=== PATIENT | female | born 1945 | race Caucasian/White ===

== ENCOUNTER 2017-03-19 19:56 | Emergency (ER) | payer MEDICARE ==
[~2017-03-19] VITALS: Ht 175.3 cm; Wt 72.5 kg
[~2017-03-19 19:56] MED LIST: ASPI81 PO; ATOR10TA84 PO; GABA-531 PO; LOSA50TA37 PO; QUET100T PO
[2017-03-19 20:12] LABS: GLUCOSE,POINT OF CARE 101 MG/DL (70-110)
[2017-03-19 21:27] LABS: BASOPHILS % (AUTO) 0.3 % (0.0-2.0); EOSINOPHILS % (AUTO) 3.2 % (1.0-6.0); HEMATOCRIT 35.4 % (36-46); LYMPHOCYTES # (AUTO) 1.4 K/uL (1.0-4.8); LYMPHOCYTES % (AUTO) 20.5 % (22.0-44.0); MEAN CORPUSCULAR HEMOGLOBIN 31.2 pg (26.0-34.0); MEAN CORPUSCULAR VOLUME 92 fL (80-100); MONOCYTES # (AUTO) 0.9 K/uL (0.1-1.0); MONOCYTES % (AUTO) 14.1 % (2.0-9.0); NEUTROPHILS # (AUTO) 4.2 K/uL (1.8-7.7); NEUTROPHILS % (AUTO) 61.9 % (40.0-70.0); PLATELET COUNT (AUTO) 221 K/uL (150-450); RED BLOOD CELL COUNT(AUTO) 3.86 MIL/uL (4.00-5.20); RED CELL DISTRIBUTION WIDTH 15.1 % (11.5-14.5); WHITE BLOOD COUNT (AUTO) 6.7 K/uL (4.5-11.0)
[2017-03-19 21:41] LABS: ANION GAP 9 mmol/L (8-16); CALCIUM, TOTAL 8.7 mg/dL (8.8-10.5); CARBON DIOXIDE 24 mmol/L (22-29); CHLORIDE 106 mmol/L (98-107); CREATININE 1.25 mg/dL (0.60-1.30); GLOMERULAR FILTR. RATE CALC 42 mL/min (>60); SODIUM SERUM 139 mmol/L (136-145); UREA NITROGEN, BLOOD 26 mg/dL (7-18)
[2017-03-19 21:47] LABS: ALANINE AMINOTRANSFERASE 37 U/L (12-78); ALBUMIN 3.4 g/dL (3.4-5.0); ASPARTATE AMINOTRANSFERASE 121 U/L (15-37); BILIRUBIN,TOTAL 0.5 mg/dL (0.1-1.0); TOTAL PROTEIN, SERUM 7.2 g/dL (6.4-8.2)
[2017-03-20 00:16] VITALS: BP 118/64
== END 2017-03-20 00:19 | disposition home or self-care (01) ==
LOC: EMS 19:57
DX: S00.03XA Contusion of scalp, initial encounter (principal); W19.XXXA Unspecified fall, initial encounter; Y93.89 Activity, other specified; Y92.89 Other specified places as the place of occurrence of the external cause; Y99.8 Other external cause status
CPT/HCPCS: 36415; 70450; 72125; 80053; 82962; 84484; 85025; 93005; 99285; G0480

== ENCOUNTER 2017-06-19 12:38 | Emergency (ER) | payer MEDICARE, OTHER ==
[~2017-06-19] VITALS: Ht 160 cm; Wt 52.3 kg
[~2017-06-19 12:38] MED LIST changes: -ATOR10TA84 PO
[2017-06-19] MEDS ORDERED: MEMA5 PO (13:02)
[2017-06-19 14:29] VITALS: BP 108/58
== END 2017-06-19 15:28 | disposition home or self-care (01) ==
LOC: EMS 12:40
DX: T17.828A Food in other parts of respiratory tract causing other injury, initial encounter (principal); I10 Essential (primary) hypertension; Z88.0 Allergy status to penicillin; Z79.82 Long term (current) use of aspirin; Z79.899 Other long term (current) drug therapy; X58.XXXA Exposure to other specified factors, initial encounter; Y93.89 Activity, other specified; Y92.89 Other specified places as the place of occurrence of the external cause; Y99.8 Other external cause status
CPT/HCPCS: 71020; 99284

== ENCOUNTER 2017-08-27 21:27 | Inpatient (IN) | payer MEDICARE, OTHER ==
[~2017-08-27] VITALS: Ht 160 cm; Wt 64.3 kg
[~2017-08-27 21:27] MED LIST changes: +MEMA5 PO
[2017-08-27 22:06] LABS: BASOPHILS % (AUTO) 0.6 % (0.0-2.0); EOSINOPHILS % (AUTO) 7.4 % (1.0-6.0); HEMOGLOBIN 11.2 g/dL (12.0-16.0); LYMPHOCYTES # (AUTO) 1.5 K/uL (1.0-4.8); LYMPHOCYTES % (AUTO) 20.3 % (22.0-44.0); MEAN CORPUSCULAR HEMOGLOBIN 30.6 pg (26.0-34.0); MEAN CORPUSCULAR HGB CONC 33.9 G/dL (31.0-37.0); MEAN CORPUSCULAR VOLUME 90 fL (80-100); MONOCYTES # (AUTO) 0.7 K/uL (0.1-1.0); MONOCYTES % (AUTO) 9.1 % (2.0-9.0); NEUTROPHILS # (AUTO) 4.7 K/uL (1.8-7.7); NEUTROPHILS % (AUTO) 62.6 % (40.0-70.0); PLATELET COUNT (AUTO) 269 K/uL (150-450); RED BLOOD CELL COUNT(AUTO) 3.65 MIL/uL (4.00-5.20); RED CELL DISTRIBUTION WIDTH 14.2 % (11.5-14.5)
[2017-08-27 22:20] LABS: AMPHET/METH SCREEN,URINE NEGATIVE (NEGATIVE); BARBITURATE SCREEN, URINE NEGATIVE (NEGATIVE); BENZODIAZEPINES SCREEN,URINE NEGATIVE (NEGATIVE); CANNABINOID SCREEN,URINE NEGATIVE (NEGATIVE); COCAINE SCREEN,URINE NEGATIVE (NEGATIVE); METHADONE SCREEN, URINE NEGATIVE (NEGATIVE); OPIATE SCREEN,URINE NEGATIVE (NEGATIVE)
[2017-08-27 22:20] LABS: ANION GAP 11 mmol/L (8-16); CALCIUM, TOTAL 8.9 mg/dL (8.8-10.5); CARBON DIOXIDE 23 mmol/L (22-29); CHLORIDE 105 mmol/L (98-107); CREATININE 1.85 mg/dL (0.60-1.30); GLOMERULAR FILTR. RATE CALC 27 mL/min (>60); GLUCOSE,RANDOM 103 mg/dL (70-110); POTASSIUM 5.3 mmol/L (3.5-5.1); SODIUM SERUM 139 mmol/L (136-145); UREA NITROGEN, BLOOD 36 mg/dL (7-18)
[2017-08-27 22:22] LABS: INR 1.3 (0.9-1.1); PROTHROMBIN TIME 13.4 SEC (9.4-11.6)
[2017-08-27 22:23] LABS: PHENCYCLIDINE SCREEN,URINE NEGATIVE (NEGATIVE)
[2017-08-27 22:35] LABS: APPEARANCE,URINE CLEAR (CLEAR); BILIRUBIN,URINE NEGATIVE (NEGATIVE); GLUCOSE, URINE (UA) NEGATIVE (NEGATIVE); KETONES,URINE NEGATIVE (NEGATIVE); LEUKOCYTE ESTERASE ,URINE NEGATIVE (NEGATIVE); NITRATE,URINE NEGATIVE (NEGATIVE); OCCULT BLOOD,URINE NEGATIVE (NEGATIVE); PH,URINE 6.5 (5.0-8.0); PROTEIN,URINE NEGATIVE (NEGATIVE)
[2017-08-27 22:42] LABS: ALANINE AMINOTRANSFERASE 64 U/L (12-78); ALBUMIN 3.5 g/dL (3.4-5.0); ALKALINE PHOSPHATASE 103 U/L (46-116); ASPARTATE AMINOTRANSFERASE 68 U/L (15-37); BILIRUBIN,TOTAL 0.5 mg/dL (0.1-1.0); CREATINE KINASE MB 1.7 ng/mL (0-5); CREATINE KINASE, TOTAL 84 U/L (26-192); THYROID STIMULATING HORMONE 5.44 uIU/mL (0.36-3.74); TOTAL PROTEIN, SERUM 7.5 g/dL (6.4-8.2)
[2017-08-27] MEDS ORDERED: SODIUM CHLORIDE 0.9% 1,000 ML IV ONE (23:15)
[2017-08-28] MEDS ORDERED: ONDANSETRON HCL 4 MG/2 ML VIAL IVP PRN ×2 (04:45→06:15)
[2017-08-28] MEDS ORDERED: ACETAMINOPHEN 325 MG TABLET PO PRN (04:45)
[2017-08-28] MEDS ORDERED: 0.9% SODIUM CHLORIDE 10 ML SYRINGE IVP PRN (04:45)
[2017-08-28] MEDS ORDERED: SODIUM CHLORIDE 0.9% 1,000 ML IV ONE (06:15)
[2017-08-28] MEDS ORDERED: MAGNESIUM HYDROXIDE SUSPENSION 30 ML UDCUP PO PRN (06:15)
[2017-08-28] MEDS ORDERED: HYDROCODONE/ACETAMINOPHEN 5-325 MG TABLET PO PRN (06:15)
[2017-08-28] MEDS ORDERED: BISACODYL 10 MG RECTAL RECTAL SUPPOSITORY PR PRN (06:15)
[2017-08-28] MEDS ORDERED: MORPHINE SULFATE 2 MG/ML SYRINGE IVP PRN (06:15)
[2017-08-28] MEDS ORDERED: ZOLPIDEM TARTRATE 5 MG TABLET PO PRN (06:15)
[2017-08-28 06:49] LABS: CALCIUM, TOTAL 8.6 mg/dL (8.8-10.5); CREATININE 1.42 mg/dL (0.60-1.30); POTASSIUM 4.9 mmol/L (3.5-5.1)
[2017-08-28 06:59] LABS: FREE T4 (FREE THYROXINE) 0.9 ng/dL (0.76-1.46)
[2017-08-28] MEDS: HEPARIN SODIUM,PORCINE 5,000 UNITS/ML VIAL SQ SCH ×3 (09:10→23:42)
[2017-08-28 09:14] VITALS: BP 129/72
[2017-08-28] MEDS: PANTOPRAZOLE SODIUM 40 MG DR TABLET PO SCH (11:13)
[2017-08-28] MEDS: ASPIRIN 81 MG CHEWABLE TABLET PO SCH (11:13)
[2017-08-28] MEDS: DOCUSATE SODIUM 100 MG CAPSULE PO SCH ×2 (11:13→20:04)
[2017-08-28 11:41] VITALS: BP 145/68
[2017-08-28 13:03] LABS: GLUCOMETER DEV NAME(LOC) 5N 1N; GLUCOSE,POINT OF CARE 85 MG/DL (70-110)
[2017-08-28 16:02] VITALS: BP 132/60
[2017-08-28 19:31] VITALS: BP 124/55
[2017-08-28] MEDS: ACETAMINOPHEN 325 MG TABLET PO PRN ×2 (20:01→23:42)
[2017-08-28] MEDS: MEMANTINE HCL 5 MG TABLET PO SCH (23:41)
[2017-08-28 23:52] VITALS: BP 135/84
[2017-08-29] MEDS: ACETAMINOPHEN 325 MG TABLET PO PRN (04:38)
[2017-08-29 04:50] VITALS: BP 139/64
[2017-08-29 06:54] LABS: BASOPHILS % (AUTO) 0.7 % (0.0-2.0); EOSINOPHILS % (AUTO) 10.9 % (1.0-6.0); HEMOGLOBIN 10.8 g/dL (12.0-16.0); LYMPHOCYTES # (AUTO) 2.2 K/uL (1.0-4.8); LYMPHOCYTES % (AUTO) 25.4 % (22.0-44.0); MEAN CORPUSCULAR HEMOGLOBIN 30.6 pg (26.0-34.0); MEAN CORPUSCULAR HGB CONC 33.8 G/dL (31.0-37.0); MEAN CORPUSCULAR VOLUME 90 fL (80-100); MONOCYTES # (AUTO) 0.9 K/uL (0.1-1.0); NEUTROPHILS # (AUTO) 4.4 K/uL (1.8-7.7); PLATELET COUNT (AUTO) 262 K/uL (150-450); RED BLOOD CELL COUNT(AUTO) 3.54 MIL/uL (4.00-5.20); RED CELL DISTRIBUTION WIDTH 13.7 % (11.5-14.5)
[2017-08-29 07:13] LABS: ALBUMIN 3.1 g/dL (3.4-5.0); BILIRUBIN,TOTAL 0.6 mg/dL (0.1-1.0); CALCIUM, TOTAL 8.8 mg/dL (8.8-10.5); CREATININE 1.25 mg/dL (0.60-1.30); POTASSIUM 4.6 mmol/L (3.5-5.1); TOTAL PROTEIN, SERUM 6.5 g/dL (6.4-8.2)
[2017-08-29 08:24] VITALS: BP 114/48
[2017-08-29] MEDS: ASPIRIN 81 MG CHEWABLE TABLET PO SCH (08:49)
[2017-08-29] MEDS: DOCUSATE SODIUM 100 MG CAPSULE PO SCH ×2 (08:49→20:38)
[2017-08-29] MEDS: HEPARIN SODIUM,PORCINE 5,000 UNITS/ML VIAL SQ SCH ×3 (08:49→23:23)
[2017-08-29] MEDS: PANTOPRAZOLE SODIUM 40 MG DR TABLET PO SCH (08:49)
[2017-08-29 12:12] VITALS: BP 128/57
[2017-08-29 15:53] VITALS: BP 113/60
[2017-08-29 20:15] VITALS: BP 130/66
[2017-08-29] MEDS: MEMANTINE HCL 5 MG TABLET PO SCH (20:38)
[2017-08-29 23:54] VITALS: BP 135/62
[2017-08-30 04:03] VITALS: BP 149/83
[2017-08-30 07:22] VITALS: BP 140/80
[2017-08-30] MEDS: HEPARIN SODIUM,PORCINE 5,000 UNITS/ML VIAL SQ SCH ×3 (09:22→23:51)
[2017-08-30] MEDS: PANTOPRAZOLE SODIUM 40 MG DR TABLET PO SCH (09:22)
[2017-08-30] MEDS: ASPIRIN 81 MG CHEWABLE TABLET PO SCH (09:22)
[2017-08-30 11:06] VITALS: BP 135/67
[2017-08-30 15:08] VITALS: BP 100/63
[2017-08-30] MEDS: DOCUSATE SODIUM 100 MG CAPSULE PO SCH ×2 (15:15→21:04)
[2017-08-30 20:04] VITALS: BP 121/63
[2017-08-30] MEDS: MEMANTINE HCL 5 MG TABLET PO SCH (21:05)
[2017-08-30 23:48] VITALS: BP 121/56
[2017-08-31 04:04] VITALS: BP 113/62
[2017-08-31 04:23] LABS: GLUCOMETER DEV NAME(LOC) 5N 1N; GLUCOSE,POINT OF CARE 122 MG/DL (70-110)
[2017-08-31 07:20] VITALS: BP 129/57
[2017-08-31] MEDS: HEPARIN SODIUM,PORCINE 5,000 UNITS/ML VIAL SQ SCH ×2 (08:37→16:38)
[2017-08-31] MEDS: DOCUSATE SODIUM 100 MG CAPSULE PO SCH (08:42)
[2017-08-31] MEDS: PANTOPRAZOLE SODIUM 40 MG DR TABLET PO SCH (08:42)
[2017-08-31] MEDS: ASPIRIN 81 MG CHEWABLE TABLET PO SCH (08:42)
[2017-08-31 11:13] VITALS: BP 108/46
[2017-08-31 15:05] VITALS: BP 94/43
[2017-08-31 16:41] VITALS: BP 128/73
== END 2017-08-31 19:00 | DRG 314 ==
LOC: EMS 21:29 → 5S 08-28 04:30
PROVIDERS: ADMIT Internal Medicine; ATTEND Internal Medicine
DX: I95.9 Hypotension, unspecified (principal); N17.0 Acute kidney failure with tubular necrosis; G93.40 Encephalopathy, unspecified; E44.0 Moderate protein-calorie malnutrition; E87.5 Hyperkalemia; G90.9 Disorder of the autonomic nervous system, unspecified; M48.02 Spinal stenosis, cervical region; D64.9 Anemia, unspecified; F03.90 Unspecified dementia, unspecified severity, without behavioral disturbance, psychotic disturbance, mood disturbance, and anxiety; I12.9 Hypertensive chronic kidney disease with stage 1 through stage 4 chronic kidney disease, or unspecified chronic kidney disease; E03.9 Hypothyroidism, unspecified; E87.6 Hypokalemia; R55 Syncope and collapse; N18.9 Chronic kidney disease, unspecified; Z68.25 Body mass index [BMI] 25.0-25.9, adult; Z88.0 Allergy status to penicillin
CPT/HCPCS: 51702; 70450; 72125; 82962; 83605; 84439; 84443; 87040; 87081; 87086; 92526; 92610; 93005; 93306; 93880; 97162; 97165; 97530; J1644